=== PATIENT | female | born 1980 | race Asian ===

== ENCOUNTER 2020-07-18 17:00 | Emergency (ER) | payer MEDICAID ==
[~2020-07-18] VITALS: Ht 170.2 cm; Wt 99.8 kg
[2020-07-18] MEDS ORDERED: IBUPROFEN600 M1 ORAL (17:23)
[2020-07-18] MEDS ORDERED: GUAIFENESI100 MG/5 M ORAL (17:23)
[2020-07-18] MEDS ORDERED: TYLENOL325 MG ORAL (17:23)
--- NOTE | 2020-07-18 17:23 | Emergency Room Report ---
History of Present Illness General Chief Complaint: Flu Like Symptoms Source: Patient Present Illness HPI 40-year-old female no past medical history no surgical history presents with cough, congestion, body aches, chills, last of taste and smell x5 days no aggravating relieving factors severity is moderate, constant patient has been taking ibuprofen at home patient denies any chest pain or shortness of breath no dyspnea on exertion patient presents for evaluation and treatment Allergies: Coded Allergies: No Known Allergies (Unverified , 07/18/20) COVID-19 Screening Contact w/high risk pt: No Experienced COVID-19 symptoms?: Yes COVID-19 Testing performed REDYE HAND: No Patient History Past Medical History: see triage record Now: No Reviewed Nursing Documentation: PMH: Agreed; PSxH: Agreed Nursing Documentation-PMH Past Medical History: No Stated History Review of Systems All Other Systems: negative except mentioned in HPI Physical Exam Vital Signs Date Time Temp Pulse Resp B/P (MAP) Pulse Ox O2 Delivery O2 Flow Rate FiO2 07/18/20 17:04 98.2 98 15 122/82 (95) 95 Room Air Sp02 EP Interpretation: reviewed, normal General Appearance: well appearing, no apparent distress, alert Head: normocephalic, atraumatic Eyes: bilateral eye PERRL, bilateral eye EOMI ENT: uvula midline, moist mucus membranes Neck: supple, thyroid normal, supple/symm/no masses Respiratory: lungs clear, no respiratory distress, no retraction, no accessory muscle use Cardiovascular #1: normal peripheral pulses, regular rate, rhythm, no edema, no gallop, no murmur Gastrointestinal: non tender, soft, no guarding, no rebound Musculoskeletal: normal inspection Neurologic: alert, oriented x3 Psychiatric: mood/affect normal Skin: no rash, warm/dry Medical Decision Making Diagnostic Impression: Primary Impression: COVID-19 ER Course 40-year-old female presents with a constellation of signs and symptoms consistent with COVID-19 Supportive care disposition home with return precautions follow-up with PCP Covid informational handout was provided to the patient Last Vital Signs Date Time Temp Pulse Resp B/P (MAP) Pulse Ox O2 Delivery O2 Flow Rate FiO2 07/18/20 17:04 98.2 98 15 122/82 (95) 95 Room Air Disposition: HOME, SELF-CARE Condition: Stable Scripts Guaifenesin* (GUAIFENESIN*) 100 Mg/5 Ml Liquid 15 ML ORAL Q8H PRN for For Cough, #120 ML 0 Refills Prov: Stuart Ramirez MD 07/18/20 Acetaminophen (Tylenol) 325 Mg Tablet 650 MG ORAL Q6H PRN for Prn Pain/Headache/Temp > 101, #30 TAB 0 Refills Prov: Stuart Ramirez MD 07/18/20 Ibuprofen* (MOTRIN*) 600 Mg Tablet 600 MG ORAL Q8H PRN for FOR PAIN, #30 TAB 0 Refills Prov: Stuart Ramirez MD 07/18/20 Referrals: [facility] [facility]. [facility] Patient Instructions: Upper Respiratory Infection, Adult, [id number] Additional Instructions: The patient was provided with discharge instructions, notified to follow-up with a primary care doctor and or specialist in the next 24-48 hours, and to return to the ED if they have worsening of their symptoms. Please note that this report is being documented using [employer] technology. This can lead to erroneous entry secondary to incorrect interpretation by the dictating instrument. Stuart Ramirez MD Jul 18, 2020 17:23
--- NOTE | 2020-07-18 17:35 | NUR ---
ED Nurse Note: urine sent to labs Pt cleared by health care Provider for discharge. DC instructions/prescription was given and explained to pt and verbalized understanding of teachings. All medical deviecs such as ID band removed. Pt is AAO x4, ambulatory and left with all personal belongings.
[2020-07-18 17:52] VITALS: BP 122/82
== END 2020-07-18 17:55 | disposition home or self-care (01) ==
LOC: EMR 17:31
DX: U07.1 COVID-19 (principal); R05 Cough; R43.8 Other disturbances of smell and taste
CPT/HCPCS: 81025; Z7502; 99282